=== PATIENT | male | born 1995 | race Caucasian/White ===

== ENCOUNTER 2022-07-03 23:21 | Emergency (ER) | payer OTHER ==
[2022-07-03] MEDS ORDERED: Sodium Chloride 0.9% 1,000 ML IV STA (23:41)
[2022-07-03] MEDS ORDERED: Sodium Chloride 0.9% 10 ML Syringe FLUSH PRN (23:41)
[2022-07-03] MEDS ORDERED: Ondansetron 4 MG/2 ML SDV IVPUSH ONE (23:41)
[2022-07-04] MEDS ORDERED: Iopamidol 612 MG/ML 100 ML Bottle IVPUSH ONE (01:05)
== END 2022-07-04 01:55 | disposition home or self-care (01) ==
LOC: JD.ED 23:21
DX: A08.4 Viral intestinal infection, unspecified (principal)
CPT/HCPCS: 36415; 80053; 81001; 83690; 85025; 96361; 96374; 99284; J2405; J3490; J7030